=== PATIENT | male | born 2000 | race Caucasian/White ===

== ENCOUNTER 2023-08-07 11:34 | Emergency (ER) | payer OTHER ==
[2023-08-07 11:40] VITALS: BP 146/102; PULSE 122; RESP 17; TEMP 100.1; BMI 30.1
[2023-08-07] MEDS ORDERED: SODIUM CHLORIDE 0.9% 500 ML INFUS.BAG IV ONE (12:09)
[2023-08-07 12:27] LABS: HEMATOCRIT 46.4 % (35.4-49); HEMOGLOBIN 15.8 G/dL (11.7-16.9); MCHC 34.1 g/dl (32.0-35.9); MEAN CELL VOLUME 87.8 fl (80-96); MEAN PLT VOLUME 7.2 fl (7.5-11.1); PLATELET COUNT 347.7 10^3/uL (134-434); RBC 5.28 10^6/uL (4.00-5.60); WHITE BLOOD COUNT 6.8 10^3/uL (4.0-10.8)
[2023-08-07 13:29] LABS: ALBUMIN 4.9 g/dl (3.4-5.0); ALK PHOS 79 U/L (45-117); ANION GAP 17 mmol/L (4-13); BILIRUBIN,TOTAL 0.7 mg/dl (0.2-1); CHLORIDE 100 mmol/L (98-107); CO2 23 mmol/L (21-32); CREATININE 0.7 mg/dl (0.6-1.3); GLUCOSE,RANDOM 129 mg/dl (74-106); POTASSIUM 3.7 mmol/L (3.5-5.1); SGOT/AST 31 U/L (15-37); SGPT/ALT 75 U/L (7-52); SODIUM 140 mmol/L (136-145); TOT PROT 8.1 g/dl (6.4-8.2)
[2023-08-07 13:32] LABS: INR 1.03 (0.83-1.09); PROTHROMBIN TIME (PATIENT) 11.9 SEC (9.7-13.0)
[2023-08-07 13:35] LABS: ACTIVATED PTT 36.9 SECONDS (25.2-36.5)
[2023-08-07 13:57] LABS: THROAT:GRP A STREP NOT DETECTED (NOTDETECTED)
[2023-08-07 14:40] LABS: PLATELET ESTIMATE ADEQUATE
== END 2023-08-07 14:27 | disposition home or self-care (01) ==
LOC: FER 11:34
DX: R07.9 Chest pain, unspecified (principal); R00.2 Palpitations; R06.02 Shortness of breath; R00.0 Tachycardia, unspecified; R11.0 Nausea; U07.1 COVID-19
CPT/HCPCS: 0241U-QW; 36415; 71046-TC-FY; 80053; 83735; 84443; 84484; 85027; 85379; 85610; 85730; 87651; 93005; 93308; 99285-25